=== PATIENT | female | born 1990 | race Hispanic/Latino ===

== ENCOUNTER → 2018-10-06 | Outpatient (CLI) | payer OTHER ==
[~2018-10-06] MED LIST: GADODIAMIDE 5 MMOL/10 ML VIAL 5 MMOL/10 ML ML IV ONE
== END | disposition home or self-care (01) ==
LOC: RAH 07:25 → EEVIPCON 07:25
PROVIDERS: ATTEND Internal Medicine
DX: E22.1 Hyperprolactinemia (principal)
CPT/HCPCS: 70553; A9579